=== PATIENT | female | born 1965 | race African-American/Black ===

== ENCOUNTER 2022-03-08 18:21 | Emergency (ER) | payer OTHER, SELFPAY ==
[2022-03-08 18:22] VITALS: BP 228/206; PULSE 100; RESP 20; TEMP 37; O2SAT 98; BMI 60.3
[2022-03-08 18:35] VITALS: BP 202/105; PULSE 97; RESP 18; O2SAT 98
--- NOTE | 2022-03-08 18:50 | EKG12_ITS ---
Test Reason : DYSRHYTHMIA Blood Pressure : / mmHG Vent. Rate : 090 BPM Atrial Rate : 090 BPM P-R Int : 178 ms QRS Dur : 102 ms QT Int : 366 ms P-R-T Axes : 056 -11 026 degrees QTc Int : 447 ms Normal sinus rhythm Left atrial enlargement Left ventricular hypertrophy Abnormal ECG Confirmed by JAY SAMSON, NANCY ([id number]), purchase request editor JOSE MCNAMARA ([id number]) on 03/11/2022 11:40:30 AM Referred By: Confirmed By:NANCY THOMPSON MD
--- NOTE | 2022-03-08 19:56 | EDS_ITS ---
HPI History of Present Illness Chief Complaint: Hypertension Detail of Chief Complaint: High blood pressure and dental pain Informant: patient Onset/Context/Timing Onset: Today Narrative Narrative: Patient presents the emergency department with concern over high blood pressure. Patient states that she did not feel well this morning so she checked her blood pressure at work and it was 214/1 100s. Patient also complains of some right upper dental pain that started today as well. She denies any fever or recent illness. She does complain of urinary frequency. She denies dysuria or ur gency. She denies chest pain or shortness of breath. She denies headache. Patient states that she has no medical problems but does not see a primary care physician. Patient does not take blood pressure medicine. Last time she checked her blood pressure was in September of this year and she states that it was pretty normal. [facility] Medical History (Updated 03/08/22 @ 21:[address] Varsha Ferrari, ) Torn meniscus Home Medications clindamycin HCl 300 mg capsule (Cleocin HCl) 300 mg PO Q6H #40 CAPSULES 03/08/22 [Rx Last Taken Unknown] hydrocodone-acetaminophen 5-325mg 5mg-325mg 1 tab PO Q4H PRN PRN Pain 2 days #10 TABLETS 03/08/22 [Rx Last Taken Unknown] metoprolol succinate 25 mg tablet,extended release 24 hr (Toprol XL) 25 mg PO DAILY #30 tabs 03/08/22 [Rx Last Taken Unknown] Allergy/AdvReac Type Severity Reaction Status Date / Time latex Allergy BURNING Verified 03/08/22 18:22 naproxen [From Naprosyn] Allergy Swelling Verified 03/08/22 18:22 Penicillins Allergy Hives Verified 03/08/22 18:22 Social History Smoking Status: Never smoker ROS ROS ED Review of Systems ROS Unobtainable: other Constitutional Constitutional ED: Reports lethargy; Denies chills, fever(s), sweats or weight loss Eyes Eyes: Denies blurry vision, change in vision or diplopia ENT ENT ED: Reports other Details: Dental pain ; Denies rhinorrhea or sore throat Cardiovascular Cardiovascular: Denies chest pain, orthopnea or racing heartbeat Respiratory/Chest Respiratory/Chest: Denies cough, dyspnea, dyspnea on exertion, orthopnea or sputum Gastrointestinal Gastrointestinal: Denies abdominal pain, diarrhea, nausea or vomiting Genitourinary Genitourinary ED: Denies dysuria, hematuria or urinary frequency Musculoskeletal Musculoskeletal: Denies arthralgias, back pain, myalgias or neck pain Integumentary Denies abscess, Abrasions or rash Neurologic Neurologic: Denies headache(s) or weakness Psychiatric Psychiatric: Denies anxiety, depression or suicidal thoughts Endocrine Endocrinology: Denies polydipsia, polyphagia or polyuria Hematologic/Lymphatic Hematologic/Lymphatic: Denies easy bleeding, easy bruising or lymphadenopathy Allergic/Immunologic Allergic/Immunologic ED: Denies mouth swelling, tongue swelling or urticaria EXAM Physical Exam Const Vital Signs: 03/08/22 18:22 03/08/22 18:32 03/08/22 18:35 Temperature 98.6 F Temperature Source Temporal Pulse Rate 100 97 Respiratory Rate 20 H 18 Respiratory Effort Normal Non-Labored Respiratory Pattern Normal Blood Pressure 228/206 H 202/105 H Blood Pressure Mean 213 137 Pulse Ox 98 98 Oxygen Delivery Method Room Air Room Air 03/08/22 21:02 Temperature Temperature Source Pulse Rate 80 Respiratory Rate 16 Respiratory Effort Respiratory Pattern Blood Pressure 190/90 H Blood Pressure Mean 123 Pulse Ox 98 Oxygen Delivery Method Room Air Positive well nourished and well developed General Appearance ED: well developed and NAD HEENT Reports TM's clear and moist mucous membranes HEENT Narrative: Dentition-patient has a broken and carried right upper molar tooth #1 it is tender to palpation. There is no gingival erythema or abscess noted. normocephalic and atraumatic; Negative for trauma or tenderness Tympanic Membrane ED: Yes TM's clear Eyes PERRL and EOMs intact bilaterally General Eye ED: Negative for pale conjunctiva or scleral icterus Neck no lymphadenopathy, supple and no JVD General: Negative for tenderness Chest Wall inspection of chest normal and palpation of chest normal Chest: Negative for tenderness Resp normal respiratory effort and clear to auscultation bilaterally Effort and Inspection: Negative for respiratory distress or pain with movement Auscultation: Negative for rhonchi, wheezes or diminished lung sounds Cardio regular rate, regular rhythm, S1 normal heart sound, S2 normal heart sound and no murmurs Peripheral Pulses: pulses 2+ throughout GI normal to inspection, nondistended, normoactive bowel sounds, soft to palpation, non-tender, non-distended and no masses Back/Spine no CVA tenderness and no thoracic nor lumbar tenderness Extremity normal to inspection General Extremety ED: Negative for edema General Extremity: Negative for edema Neuro oriented x3, CN's II-XII intact bilaterally, no sensory deficits noted and gait normal Sensorium / Orientation: awake, alert, oriented to person, oriented to place and oriented to time Motor Exam: strength 5/5 throughout and strength abnormal Psych mental status grossly normal Skin no rashes or lesions noted and no wounds MDM MDM MDM Narrative Medical decision making narrative: IV line established on arrival. Patient was given labetalol 20 mg IV x1 and this improved her blood pressure into the 190s over 80s. Lab work-up was unremarkable. Urinalysis was unremarkable. Patient did have LVH on her EKG so I suspect she likely has longstanding hypertension. 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 Jarvis who recommended Lopressor 25 mg daily and he will follow her up in the office. Regarding her tooth I will give her a referral to dentist. Patient will be given a prescription for clindamycin and a few [place] for pain. Discharged home in stable condition. Lab Data Attestation: I reviewed the patient's lab results. Labs: Laboratory Results - last 24 hr 03/08/22 03/08/22 03/08/22 18:50 18:50 20:05 WBC 5.0 RBC 4.58 Hgb 12.5 Hct 40.5 MCV 88.4 MCH 27.3 MCHC 30.9 L RDW Std Deviation 46.1 H RDW Coeff of Deep 14.2 Plt Count 170 MPV 12.6 H Immature Gran % (Auto) 0.400 Neut % (Auto) 64.2 Lymph % (Auto) 21.4 [place] % (Auto) 13.4 H Eos % (Auto) 0.2 Baso % (Auto) 0.4 Absolute Neuts (auto) 3.2 Absolute Lymphs (auto) 1.07 Nucleated RBC % 0 Sodium 136 Potassium 4.5 Chloride 99 Carbon Dioxide 27.0 Anion Gap 10 BUN 8 Creatinine 0.94 Estim Creat Clear Calc 48.00 Est GFR (MDRD) Af Amer 79 Est GFR (MDRD) Non-Af 66 BUN/Creatinine Ratio 8.6 L Glucose 88 Calcium 9.9 Troponin I High Sens 42 Urine Color Yellow Urine Clarity Sl. Cloudy Urine pH 7.0 Ur Specific [place] 1.005 Urine Protein Negative Urine Glucose (UA) Normal Urine Ketones 5 H Urine Occult Blood 10 H Urine Nitrite Negative Urine Bilirubin Negative Urine Urobilinogen Normal Ur Leukocyte Esterase 500 H Urine RBC 0-5 SEEN Urine WBC 0-5 SEEN Ur Squamous Epith Cells 0-5 SEEN Urine Bacteria RARE Urine Mucus 0 SEEN Radiography Chest X-Ray - ED: - EKG Initial EKG: Attestation: I personally reviewed and interpreted this EKG as follows: Comments: Sinus rhythm with a ventricular rate of of 90 bpm with left atrial enlargement and left ventricular hypertrophy Prior EKG tracings: not available for review Discharge Plan Triage Chief Complaint: Hypertension ED Provider: Varsha Ferrari Dx/Rx/DC Orders Clinical Impression: Hypertension, Pain, dental Instructions: ED Dental Pain, ED Hypertension New Begin Treatment Prescriptions: New metoprolol succinate [Toprol XL] 25 mg tablet extended release 24 hr 25 mg PO DAILY Qty: 30 0RF clindamycin HCl [Cleocin HCl] 300 mg capsule 300 mg PO Q6H Qty: 40 0RF hydrocodone-acetaminophen [hydrocodone-acetaminophen] 5-325 mg tablet 1 tab PO Q4H PRN PRN (Reason: Pain) 2 Days Qty: 10 0RF Primary Care Provider: Care Physician,No Primary Referrals: Ghulam Jarvis MD [Non-Staff] - 3-5 Days Care Physician,No Primary [Primary Care Provider] - Disposition Disposition: Home, Self Care
[2022-03-08] MEDS: Labetalol (Prefilled) 20 MG/4 ML IV (20:02)
[2022-03-08 20:05] LABS: Absolute Lymphocyte Count 1.07 X10^3/uL (0.83-4.51); Absolute Neutrophil Count 3.2 X10^3/uL (2.0-7.7); Basophil# 0.02 X10^3/uL; Basophil% 0.4 % (0-1); Eosinophil# 0.01 X10^3/uL; Eosinophils% 0.2 % (0-5); Hematocrit 40.5 % (37-47); Hemoglobin 12.5 g/dL (12.0-15.0); Lymphocyte # 1.07 X10^3/ul (0.83-4.51); Lymphocyte % 21.4 % (19-41); Mean Corp Hgb Conc 30.9 g/dL (32-36); Mean Corpuscular Hgb 27.3 pg (27.0-32.0); Mean Corpuscular Volume 88.4 fL (81-99); Mean Platelet Vol. 12.6 fl (6.2-12.0); Monocyte# 0.67 X10^3/uL; Monocyte% 13.4 % (0-10); NRBC Flagged by Analyzer 0 % (0-5); Neutrophil # 3.22 X10^3/uL (2.7-7.7); Neutrophil % 64.2 % (47-70); Platelet Count 170 K/mm3 (150-450); RBC Distribution Width CV 14.2 % (11.6-14.6); RBC Distribution Width SD 46.1 fl (35.1-43.9); Red Blood Count 4.58 M/mm3 (4.2-5.4)
[2022-03-08 20:13] LABS: Mucous, Urine 0 SEEN /hpf (<or=2+)
[2022-03-08 20:16] LABS: Color, Urine Yellow (Yellow); Glucose, Dipstick Normal (Normal); Ketone-Dipstick 5 mg/dl (Negative); Leukocyte Esterase-Dipstick 500 /ul (Negative); Nitrite-Dipstick Negative (Negative); Occult Blood-Urine 10 /ul (Negative); Protein-Dipstick Negative (Negative); Specific Gravity, Urine 1.005 (1.002-1.030); Urine Bilirubin Dipstick Negative (Negative); Urine Clarity Sl. Cloudy (Clear); Urine Urobilinogen Normal (Normal)
[2022-03-08 20:22] LABS: Bacteria RARE /hpf (None Seen); Red Blood Cells-Urine 0-5 SEEN /hpf (0-5); Squamous Epithelial Cells - UA 0-5 SEEN /hpf (5-10); White Blood Cells 0-5 SEEN /hpf (0-5)
[2022-03-08 20:33] LABS: Anion Gap 10 (5-15); BUN 8 mg/dL (7-18); BUN/Creat Ratio 8.6 RATIO (10-20); Calcium,Total 9.9 mg/dL (8.5-10.1); Chloride 99 mmol/L (98-107); Creatinine, Serum 0.94 mg/dL (0.55-1.02); EST Glomerular Filtration Rate 66 mL/min (>60); Est Glom Filt Rate - Afr Amer 79 mL/min (>60); Glucose 88 mg/dL (74-106); Potassium 4.5 mmol/L (3.5-5.1); Sodium Level 136 mmol/L (136-145); Troponin-I HS 42 pg/mL (3.0-54.0)
[2022-03-08 21:02] VITALS: BP 190/90; PULSE 80; RESP 16; O2SAT 98
== END 2022-03-08 22:10 | disposition home or self-care (01) ==
PROVIDERS: Emergency Provider Emergency Medicine; Visit Provider Emergency Medicine
DX: I10 Essential (primary) hypertension (principal); K08.89 Other specified disorders of teeth and supporting structures
CPT/HCPCS: 80048; 81001; 84484; 85025; 93005; 96374; 99284; A4216